=== PATIENT | female | born 1990 | race African-American/Black ===

== ENCOUNTER 2019-04-15 21:57 | Emergency (ER) | payer OTHER ==
[~2019-04-15] VITALS: Ht 170.2 cm; Wt 63.5 kg
[2019-04-15] MEDS ORDERED: DIPHENHIST50 MG (22:08)
[2019-04-15] MEDS ORDERED: PREDNISONE 10 M10 MG PO (23:30)
[2019-04-16 01:30] VITALS: BP 00/00
== END 2019-04-16 09:40 | disposition home or self-care (01) ==
LOC: ER 21:57
DX: S30.861A Insect bite (nonvenomous) of abdominal wall, initial encounter (principal); F17.210 Nicotine dependence, cigarettes, uncomplicated; W57.XXXA Bitten or stung by nonvenomous insect and other nonvenomous arthropods, initial encounter; Y93.89 Activity, other specified; Y92.89 Other specified places as the place of occurrence of the external cause; Y99.8 Other external cause status